=== PATIENT | female | born 1945 | race Caucasian/White ===

== ENCOUNTER → 2016-10-09 | Outpatient (CLI) | payer OTHER | LOC: BMCIMAGING 09:26 | DX: Z12.31 Encounter for screening mammogram for malignant neoplasm of breast (principal) | CPT/HCPCS: G0202 ==

== ENCOUNTER → 2016-10-22 | Outpatient (CLI) | payer OTHER | LOC: BMCIMAGING 13:10 | DX: Z03.89 Encounter for observation for other suspected diseases and conditions ruled out (principal) | CPT/HCPCS: G0206 ==

== ENCOUNTER → 2017-01-18 | Outpatient (CLI) | payer OTHER | LOC: BMCIMAGING 11:54 | PROVIDERS: ATTEND Emergency Medicine | DX: M43.17 Spondylolisthesis, lumbosacral region (principal); M12.88 Other specific arthropathies, not elsewhere classified, other specified site ==

== ENCOUNTER 2017-11-23 14:27 | Emergency (ER) | payer OTHER ==
--- NOTE | 2017-11-23 15:21 | CPEKG ---
Heart Rate: 62 RR Interval: 968 P-R Interval: 156 QRSD Interval: 72 QT Interval: 436 QTC Interval: 443 P Chunky: 49 QRS Chunky: 40 T Wave Chunky: 49 EKG Severity - NORMAL ECG - EKG Impression: SINUS RHYTHM Electronically Signed By: Niko Jean 23-Nov-2017 16:31:04
--- NOTE | 2017-11-23 15:56 | EDPHY ---
H & P Time Seen by Provider: 11/23/17 15:55 HPI/ROS: Chief complaint. Upper back and arm pit pain HPI. 72-year-old female presents emergency department with discomfort that was more severe this morning in the left axilla but also just inside the left shoulder blade. It is getting better. Initially it is a sharp twinge in and it is more dull and achy for the rest of the day. It continues to improve. She has had it previously. Depths episode began at 6:00 a.m.. She has previously had on the right shoulder blade area as well. She has no shortness of breath, no chest discomfort no nausea. No unusual leg pain or swelling. No fever or cough. Her symptoms are not worse with deep breathing, exertion or position. It feels better with range of motion of her left shoulder. She did take aspirin prior to arrival. ROS Constitutional. no fever/chills, no weakness Eyes. no problems with vision ENT. no sore throat, no nasal drainage Cardiovascular. no chest pain Respiratory. no shortness of breath, no cough Abdominal. no abdominal pain, no nausea/vomiting, no diarrhea . no problems urinating MS. Left posterior shoulder blade pain and is in some axilla pain. Skin. no rash Lymph. no swollen glands Neuro. no headache, no dizziness, no difficulty walking or with speech Past Medical/Surgical History: Past medical history hypothyroid, hysterectomy, GERD Social History: , nonsmoker, no alcohol Smoking Status: Never smoked Physical Exam: General Appearance: Alert pleasant well-developed female mild distress vital signs significant for elevated blood pressure at 192/110 Eyes: Pupils equal and round no pallor or injection. ENT, Mouth: Mucous membranes are moist. Respiratory: There are no retractions, lungs are clear to auscultation. Cardiovascular: Regular rate and rhythm. Gastrointestinal: Abdomen is soft and nontender, no masses, bowel sounds normal. Neurological: Awake and alert, sensory and motor exams grossly normal. Skin: Warm and dry, no rashes. Musculoskeletal: Neck is supple nontender. No tenderness over the thoracic spine. Some tenderness to the medial aspect of the left scapula. Extremities symmetrical, full range of motion. Psychiatric: Patient is oriented X 3, there is no agitation. Constitutional: Initial Vital Signs Temperature (C) 36.8 C 11/23/17 14:34 Heart Rate 65 11/23/17 14:34 Respiratory Rate 18 11/23/17 14:34 Blood Pressure 192/110 H 11/23/17 14:34 O2 Sat (%) 92 11/23/17 14:34 O2 Delivery Mode Room Air Allergies/Adverse Reactions: morphine Allergy (Verified 11/23/17 14:34) promethazine HCl [From Phenergan] Allergy (Verified 11/23/17 14:34) soy Allergy (Verified 11/23/17 14:34) Tetanus Vaccines and Toxoid [Tetanus Vaccines & Toxoid] Allergy (Verified 14:34) Soy Allergy (Uncoded 11/23/17 14:34) [place] Allergy (Uncoded 11/23/17 14:34) Home Medications: Medication Instructions Recorded Amitriptyline HCl [Elavil 10 mg 10 mg PO HS 02/09/14 (*)] Calcium Carbonate [Oyster Shell 500 mg PO DAILY 02/09/14 Calcium 500 mg (*)] Cholecalciferol Vit D3 [Vitamin D3 1,000 units PO DAILY 02/09/14 (*)] Estradiol [Estrace Vaginal (*)] 1 lisbeth VG DAILY PRN 02/09/14 Estradiol [Estradiol 1 MG (*)] 1 mg PO DAILY 02/09/14 Herbals/Supplements -Info Only 1 ea PO AD 02/09/14 Levothyroxine [Synthroid 150 mcg 150 mcg PO DAILY06 02/09/14 (*)] Multivitamins [Multivitamin (*)] 1 each PO DAILY 02/09/14 Docusate Sodium [Colace 100 MG (*)] 100 mg PO BID #40 cap 02/19/14 Hydrocodone/APAP 5/325 [[place] 2 tab PO Q4 PRN #20 tab 02/19/14 5/325 (*)] Ibuprofen [Motrin (*)] 600 mg PO QID #40 tab 02/19/14 Cephalexin [Keflex] 500 mg PO Q6H #28 cap 03/10/16 diphenhydrAMINE [Benadryl 25 MG 25 mg PO BID #20 tab 03/10/16 (*)] predniSONE 60 mg PO DAILY #9 tab 03/10/16 Medical Decision Making - Diagnostics EKG Interpretation: EKG interpreted by me shows normal sinus rhythm with normal interval and axis. QRS is normal there is no significant ST elevation or depression. No arrhythmia. The rate is 62 Procedures: IV normal saline, monitor ED Course/Re-evaluation: Re-evaluation 4:50 p.m. Patient is Stable without symptoms Re-evaluation 5:30 p.m.. The patient and I discussed laboratory evaluation, treatment plan including criteria for return importance of follow-up and further of evaluation. She expresses understanding and agreement Differential Diagnosis: I think that this is musculoskeletal in etiology. Patient's symptoms are really medial aspect of the left scapula. I do not see any evidence for acute coronary syndrome. Symptoms are not consistent with pulmonary embolus - Data Points Laboratory Results: Laboratory Results 11/23/17 16:29 11/23/17 16:29 11/23/17 11/23/17 16:29 16:29 WBC 6.92 10^3/uL 10^3/uL (3.80-9.50) RBC 4.49 10^6/uL 10^6/uL (4.18-5.33) Hgb 13.7 g/dL g/dL (12.6-16.3) Hct 39.7 % % (38.0-47.0) MCV 88.4 fL fL (81.5-99.8) MCH 30.5 pg pg (27.9-34.1) MCHC 34.5 g/dL g/dL (32.4-36.7) RDW 13.9 % % (11.5-15.2) Plt Count 193 10^3/uL 10^3/uL (150-400) MPV 11.3 fL fL (8.7-11.7) Neut % (Auto) 69.4 % % (39.3-74.2) Lymph % (Auto) 19.8 % % (15.0-45.0) [place] % (Auto) 8.8 % % (4.5-13.0) Eos % (Auto) 1.0 % % (0.6-7.6) Baso % (Auto) 0.7 % % (0.3-1.7) Nucleat RBC Rel Count 0.0 % % (0.0-0.2) Absolute Neuts (auto) 4.80 10^3/uL 10^3/uL (1.70-6.50) Absolute Lymphs (auto) 1.37 10^3/uL 10^3/uL (1.00-3.00) Absolute Monos (auto) 0.61 10^3/uL 10^3/uL (0.30-0.80) Absolute Eos (auto) 0.07 10^3/uL 10^3/uL (0.03-0.40) Absolute Basos (auto) 0.05 10^3/uL 10^3/uL (0.02-0.10) Absolute Nucleated RBC 0.00 10^3/uL 10^3/uL (0-0.01) Immature Gran % 0.3 % % (0.0-1.1) Immature Gran # 0.02 10^3/uL 10^3/uL (0.00-0.10) Sodium 139 mEq/L mEq/L (135-145) Potassium 4.4 mEq/L mEq/L (3.5-5.2) Chloride 105 mEq/L mEq/L (97-110) Carbon Dioxide 22 mEq/l mEq/l (22-31) Anion Gap 12 mEq/L mEq/L (8-16) BUN 16 mg/dL mg/dL (7-23) Creatinine 0.7 mg/dL mg/dL (0.6-1.0) Estimated GFR > 60 Glucose 91 mg/dL mg/dL (70-100) Calcium 9.4 mg/dL mg/dL (8.5-10.4) Troponin I < 0.012 ng/mL ng/mL (0.000-0.034) Departure - Departure Disposition: Home, Routine, Self-Care Clinical Impression: Thoracic back pain Qualifiers: Chronicity: acute Back pain laterality: left Qualified Code(s): M54.6 - Pain in thoracic spine Condition: Good Instructions: Thoracic Pain (ED), Muscle Spasm (ED) Additional Instructions: Heat to sore area. Ibuprofen 600 mg every 6 hr for discomfort. Activity as tolerated. Re-evaluation in 2-3 days for continuing symptoms Referrals: Diana Gonzalez MD [Primary Care Provider] - 2-3 days, if not improved
[2017-11-23 16:39] LABS: PLATELET COUNT 193 10^3/uL (150-400)
[2017-11-23 17:54] VITALS: BP 140/82
== END 2017-11-23 17:54 | disposition home or self-care (01) ==
DX: M54.6 Pain in thoracic spine (principal)

== ENCOUNTER → 2018-01-19 | Outpatient (CLI) | payer OTHER | LOC: BMCIMAGING 09:10 | PROVIDERS: ATTEND Internal Medicine | DX: Z12.31 Encounter for screening mammogram for malignant neoplasm of breast (principal) ==